=== PATIENT | male | born 1990 | race Caucasian/White ===

== ENCOUNTER 2017-06-10 03:00 | Emergency (ER) | payer MEDICAID ==
[~2017-06-10] VITALS: Ht 180.3 cm; Wt 100.0 kg
[2017-06-10] MEDS ORDERED: SODIUM CHLORIDE 0.9% 1,000 ML IV ONE (03:05)
[2017-06-10] MEDS ORDERED: ONDANSETRON HCL 4MG/2ML VIAL IV STA (03:05)
[2017-06-10] MEDS ORDERED: MORPHINE SULFATE 4 MG/ML CPJ (NOT FOR IM USE) IV STA (03:05)
[2017-06-10] MEDS ORDERED: CEFAZOLIN 1000MG PREMIX 50 ML IV ONE (03:15)
[2017-06-10] MEDS ORDERED: TETANUS, DIPHTHERIA, PERTUSSIS VAC/PF 0.5ML (>7YR OLD) IM ONE (03:15)
[2017-06-10] MEDS ORDERED: MORPHINE SULFATE 10 MG/ML CPJ IV STA (03:16)
[2017-06-10 03:29] LABS: BASOPHILS % 0.6 % (0.0-2.0); EOSINOPHILS % 0.6 % (0.0-5.0); HEMATOCRIT. 49.8 % (42.0-52.0); HEMOGLOBIN. 16.7 g/dL (14.0-18.0); LYMPHOCYTES % 18.1 % (20.0-50.0); MEAN CORPUSCULAR HEMOGLOBIN 30.5 pg (28.0-32.0); MEAN CORPUSCULAR VOLUME 90.7 fL (80.0-94.0); MEAN PLATELET VOLUME 8.9 fl (7.4-10.4); MONOCYTES % 9.6 % (2.0-8.0); NEUTROPHILS % 71.1 % (40.0-76.0); PLATELET 299 x1000/uL (130-400); RED BLOOD CELL COUNT 5.49 mill/uL (4.7-6.1); RED CELL DISTRIBUTION WIDTH 13.8 % (11.6-14.6)
[2017-06-10] MEDS ORDERED: MORPHINE SULFATE 10 MG/ML CPJ IV SCH (03:30)
[2017-06-10 03:34] LABS: CHLORIDE 104 mEq/L (98-107)
[2017-06-10 03:38] LABS: PROTHROMBIN TIME 10.7 sec (9.4-11.6)
[2017-06-10 03:42] LABS: CARBON DIOXIDE 22 mEq/L (21-32)
[2017-06-10] MEDS ORDERED: IOHEXOL-300 100 ML BOTTLE ONE (06:23)
[2017-06-10 06:32] VITALS: BP 139/86
== END 2017-06-10 06:54 | disposition short-term general hospital (02) ==
LOC: ER 03:00
DX: S31.111A Laceration without foreign body of abdominal wall, left upper quadrant without penetration into peritoneal cavity, initial encounter (principal); F17.200 Nicotine dependence, unspecified, uncomplicated; W26.9XXA Contact with unspecified sharp object(s), initial encounter; Y93.89 Activity, other specified; Y92.89 Other specified places as the place of occurrence of the external cause; Y99.8 Other external cause status
CPT/HCPCS: 36415; 74177; 80053; 85025; 85610; 86850; 86900; 86901; 90471; 90715; 96365; 96375; 99291; J0690; J2270; J2405; J7030; Q9967; Z7610